=== PATIENT | male | born 1980 | race Caucasian/White ===

== ENCOUNTER 2022-03-03 09:19 | Emergency (ER) | payer OTHER ==
[2022-03-03 09:27] VITALS: BP 131/81; PULSE 71; TEMP 97.8; BMI 30.5
[2022-03-03 11:22] LABS: BASO % 0.7 % (0-2.0); HEMATOCRIT 41.6 % (35.4-49); HEMOGLOBIN 14.1 GM/dL (11.7-16.9); LYMPH % 19.2 % (8-40); MCH 30.9 pg (25.7-33.7); MEAN CELL VOLUME 90.8 fl (80-96); MEAN PLT VOLUME 8.4 fl (7.5-11.1); MONO % 7.5 % (3.8-10.2); NEUT % 71.6 % (42.8-82.8); PLATELET COUNT 277 10^3/uL (134-434); RBC 4.57 M/mm3 (4.00-5.60); RDW 13.3 % (11.9-15.9); WHITE BLOOD COUNT 8.2 K/mm3 (4.0-10.0)
[2022-03-03 11:51] LABS: BLOOD UREA NITROGEN 13.4 mg/dL (7-18); CALCIUM 9.4 mg/dL (8.5-10.1)
[2022-03-03 11:52] LABS: ALBUMIN 4.3 g/dl (3.4-5.0)
[2022-03-03 11:54] LABS: CREATININE 0.8 mg/dL (0.55-1.3)
[2022-03-03 11:56] LABS: BILIRUBIN,TOTAL 0.6 mg/dL (0.2-1); TOT PROT 7.5 g/dl (6.4-8.2)
[2022-03-03 12:07] LABS: EPI CELLS 7 /uL (0-25.1); HYALINE CASTS 3 /uL (0-3.1); PH,URINE 5.5 (5.0-8.0); URINE APPEARANCE CLEAR; URINE BACTERIA 62 /uL (0-1359); URINE BILIRUBIN NEGATIVE (NEGATIVE); URINE COLOR YELLOW; URINE GLUCOSE (UA) NEGATIVE (NEGATIVE); URINE KETONE NEGATIVE (NEGATIVE); URINE LEUK ESTERASE TRACE (NEGATIVE); URINE NITRITE NEGATIVE (NEGATIVE); URINE PROTEIN NEGATIVE (NEGATIVE); URINE RBC 9 /uL (0-23.9); URINE UROBILINOGEN 0.2 mg/dL (0.2-1.0); URINE WBC 37 /uL (0-25.8)
== END 2022-03-03 13:39 | disposition home or self-care (01) ==
LOC: JER 09:19
DX: R11.0 Nausea (principal)
CPT/HCPCS: 36415; 71046-TC-FY; 80053; 81003; 83690; 85025; 87086; 99284-25